=== PATIENT | female | born 1990 | race Caucasian/White ===

== ENCOUNTER 2016-05-18 15:28 | Emergency (ER) | payer OTHER ==
--- NOTE | 2016-05-18 17:20 | ED NURSING NOTES ---
Clinical Report - Nurses [facility] [address] [place] [address] 05/18/2016 15:29 [id number] Triage time 15:43 May 18 2016. Acuity: LEVEL 3. Chief Complaint: FAINTING ("like the room was upside down", "like I was going to faint" "I was breathing fast"). Alert. No acute distress. DIANNA COMA SCORE: [place] Coma Scale: 15- eyes open spontaneously (4); best verbal response- oriented x 4 (5); best motor response- obeys commands (6). --15:55 Shyann Mayo R.N. 15:43 05/18/16. BP: 118/66. HR: 83. RR: 18. O2 saturation: 100%. Temp: 98.3 F. Pain level now 0/10. --15:55 Shyann Mayo R.N. Weight: 121.1 kg stated. Height/Length: 69 inches Per Patient. BMI: 39.5. --15:42 Shyann Mayo R.N. Medications Metoprolol Tartrate Oral 25 mg. --15:47 Shyann Mayo R.N. Xanax Oral, as needed (used to take this, no longer). --15:49 Shyann Mayo R.N. Medication/allergy information source: the patient. --15:55 Shyann Mayo R.N. Allergies Penicillins. --15:53 Shyann Mayo R.N. History Arrived by private vehicle. Historian: patient. Primary physician (PCP - Cameron). 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 Pt takes Metoprolol.). This started just prior to arrival. Treatment FLITCH HANGER: None. PAST MEDICAL HX: Last normal menstrual period- May 03. No contraception. Denies current . SURGERY HX: No history of previous surgery. SOCIAL HX: Smoker- current status unknown. Alcohol use. No drug use. No infectious disease exposure. FALL RISK ASSESSMENT: Fall risk assessment completed. No fall risk identified. NUTRITIONAL RISK ASSESSMENT: The nutritional risk assessment revealed no deficiencies. FUNCTIONAL ASSESSMENT: Functional assessment: no impairments noted. LEARNING NEEDS ASSESSMENT: The learning needs assessment revealed no barriers. SKIN INTEGRITY ASSESSMENT: Skin integrity risk assessment completed. No skin integrity risk identified. --15:55 Shyann Mayo R.N. PROBLEMS: Migraines. --15:53 Shyann Mayo R.N. Interventions ID band on patient. To room. --15:55 Shyann Mayo R.N. PHYSICAL ASSESSMENT Ambulatory to room. GENERAL / NEURO / PSYCH: Oriented X 4. Appears in no acute distress. HEENT: Pupils equal, round and reactive to light. No facial asymmetry noted. RESPIRATORY: Respirations not labored. CVS: Capillary refill less than 2 seconds. SKIN: Skin is warm and dry. --17:41 Shyann Mayo R.N. NURSING PROGRESS NOTES Blood samples drawn by lab per protocol ; labeled in presence of the patient. --15:55 Shyann Mayo R.N. :patient confirmed. Clean catch urine collected with return of yellow-colored clear urine; sample sent to lab for urinalysis and HCG. --16:10 Shyann Mayo R.N. EKG time: (16:29). EKG was performed by a tech and shown to the ED physician. --17:31 [facility]. DISPOSITION / DISCHARGE Cardiac rhythm: normal sinus rhythm. No learning barriers present. Discharge instructions provided and reviewed with the patient. Patient verbalized understanding. Written instructions provided in [place]. No medication instructions. The patient was discharged by the physician. She was discharged home. She left the Emergency Department ambulatory and via private vehicle. Patient driving. --17:42 Shyann Mayo R.N. 17:41 05/18/16. BP: 108/73. HR: 82. RR: 18. O2 saturation: 99%. Pain level now 0/10. --17:42 Shyann Mayo R.N. Departure time: 17:42 May 18 2016. --17:42 Shyann Mayo R.N. Locked/Released at 05/18/2016 17:42 by Shyann Mayo R.N.
--- NOTE | 2016-05-18 17:20 | ED NURSING NOTES ---
Clinical Report - Nurses [facility] [address] [place] [address] 05/18/2016 15:29 [id number] TRI[facility] Triage time 15:43 May 18 2016. Acuity: LEVEL 3. Chief Complaint: FAINTING ("like the room was upside down", "like I was going to faint" "I was breathing fast"). Alert. No acute distress. DIANNA COMA SCORE: [place] Coma Scale: 15- eyes open spontaneously (4); best verbal response- oriented x 4 (5); best motor response- obeys commands (6). --15:55 Shyann Mayo R.N. 15:43 05/18/16. BP: 118/66. HR: 83. RR: 18. O2 saturation: 100%. Temp: 98.3 F. Pain level now 0/10. --15:55 Shyann Mayo R.N. Weight: 121.1 kg stated. Height/Length: 69 inches Per Patient. BMI: 39.5. --15:42 Shyann Mayo R.N. Medications Metoprolol Tartrate Oral 25 mg. --15:47 Shyann Mayo R.N. Xanax Oral, as needed (used to take this, no longer). --15:49 Shyann Mayo R.N. Medication/allergy information source: the patient. --15:55 Shyann Mayo R.N. Allergies Penicillins. --15:53 Shyann Mayo R.N. History Arrived by private vehicle. Historian: patient. Primary physician (PCP - Cameron). 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 Pt takes Metoprolol.). This started just prior to arrival. Treatment VOCATIONAL DIRECTOR: None. PAST MEDICAL HX: Last normal menstrual period- May 03. No contraception. Denies current . SURGERY HX: No history of previous surgery. SOCIAL HX: Smoker- current status unknown. Alcohol use. No drug use. No infectious disease exposure. FALL RISK ASSESSMENT: Fall risk assessment completed. No fall risk identified. NUTRITIONAL RISK ASSESSMENT: The nutritional risk assessment revealed no deficiencies. FUNCTIONAL ASSESSMENT: Functional assessment: no impairments noted. LEARNING NEEDS ASSESSMENT: The learning needs assessment revealed no barriers. SKIN INTEGRITY ASSESSMENT: Skin integrity risk assessment completed. No skin integrity risk identified. --15:55 Shyann Mayo R.N. PROBLEMS: Migraines. --15:53 Shyann Mayo R.N. Interventions ID band on patient. To room. --15:55 Shyann Mayo R.N. PHYSICAL ASSESSMENT Ambulatory to room. GENERAL / NEURO / PSYCH: Oriented X 4. Appears in no acute distress. HEENT: Pupils equal, round and reactive to light. No facial asymmetry noted. RESPIRATORY: Respirations not labored. CVS: Capillary refill less than 2 seconds. SKIN: Skin is warm and dry. --17:41 Shyann Mayo R.N. NURSING PROGRESS NOTES Blood samples drawn by lab per protocol ; labeled in presence of the patient. --15:55 Shyann Mayo R.N. :patient confirmed. Clean catch urine collected with return of yellow-colored clear urine; sample sent to lab for urinalysis and HCG. --16:10 Shyann Mayo R.N. EKG time: (16:29). EKG was performed by a tech and shown to the ED physician. --17:31 [facility]. DISPOSITION / DISCHARGE Cardiac rhythm: normal sinus rhythm. No learning barriers present. Discharge instructions provided and reviewed with the patient. Patient verbalized understanding. Written instructions provided in [place]. No medication instructions. The patient was discharged by the physician. She was discharged home. She left the Emergency Department ambulatory and via private vehicle. Patient driving. --17:42 Shyann Mayo R.N. 17:41 05/18/16. BP: 108/73. HR: 82. RR: 18. O2 saturation: 99%. Pain level now 0/10. --17:42 Shyann Mayo R.N. Departure time: 17:42 May 18 2016. --17:42 Shyann Mayo R.N. Locked/Released at 05/18/2016 17:42 by Shyann Mayo R.N.
--- NOTE | 2016-05-18 17:20 | ED CLINICAL REPORT ---
Clinical Report - Physicians/Mid Levels [facility] [address] [place] [address] 05/18/2016 15:29 Patient: ABNER JOHNS Arrived- By private vehicle. Historian- patient. HISTORY OF PRESENT ILLNESS Is no longer unconscious. She has recovered. Chief Complaint: NEAR-SYNCOPE. This occurred today. It was abrupt in onset. Patient was last known well (just prior to arrival). Event was witnessed. The patient felt faint. The patient had preceding symptoms of light-headedness. At time of event, she was standing. This did not occur when the patient was recumbent, after she had just stood up or during exertion. The episode was brief and lasted minutes. Currently she has no symptoms. No injuries noted. Currently she feels normal. No weakness currently. No nausea currently. No headache currently. (reports that she works at a [employer]. States that this has happened in the past before. Reports that she is Following up with a specialist. Has not been able to schedule an appointment at.). Similar symptoms previously: Several times. Recent medical care: Not recently seen/assessed. REVIEW OF SYSTEMS No chest pain, abdominal pain or fever. All systems otherwise negative, except as recorded above. PAST HISTORY See nurses notes. SOCIAL HISTORY Never smoker. No alcohol use or drug use. Is a local resident. FAMILY HISTORY Negative. (no family history of early/sudden ). ADDITIONAL NOTES The nursing notes have been reviewed. PHYSICAL EXAM Vital Signs: 05/18/2016 15:43 BP: 118/66. HR: 83. RR: 18. O2 saturation: 100%. Temp: 98.3 F. Blood pressure normal. Oxygen saturation normal. Appearance: Alert. No acute distress. Eyes: Pupils equal, round and reactive to light. No nystagmus. Extraocular movements normal. ENT: Normal ENT inspection. TM's normal. Moist mucous membranes. Pharynx normal. Neck: Normal inspection. Neck supple. CVS: Normal heart rate and rhythm. Heart sounds normal. Pulses normal. Respiratory: No respiratory distress. Breath sounds normal. Abdomen: Soft and nontender. No organomegaly. Skin: Skin warm and dry. Normal skin color. No rash. Normal skin turgor. Extremities: Extremities exhibit normal ROM. No lower extremity edema. Neuro: Alert. Oriented X 3. Mood/affect normal. Speech normal. Cranial nerves normal (as tested). No cerebellar findings. No motor deficit. No sensory deficit. Reflexes normal. (negative Sincere-Hallpike. HINTS examination negative). LABS, X-RAYS, AND EKG EKG: EKG time: (1629). No acute process. No acute ischemia. Normal EKG. Normal sinus rhythm. Normal P waves. Normal ALVARO. Normal QRS complex. Normal axis. Normal ST and T waves, QT and QTc. The study has been interpreted contemporaneously by me. The study has been independently viewed by me. The EKG appears to be a good tracing. Interpretation time: 1632. Laboratory Tests: Urine: ([place]: 05/18/2016 16:00) ( [facility] 05/18/2016 16:19) Final results Test Result Flag Units (Reference) URINE NEGATIVE CBC w Diff: ([place]: 05/18/2016 15:55) ( [facility] 05/18/2016 16:12) Final results Test Result Flag Units (Reference) WHITE BLOOD COUNT 11.5 K/uL (4.5-11.5) RED BLOOD COUNT 5.02 M/uL (4.00-5.20) HEMOGLOBIN 15.7 gm/dL (12.0-16.0) HEMATOCRIT 46.3 H % (36.0-46.0) MEAN CELL VOLUME 92 fL (80-100) MEAN CORPUSCULAR HGB 31 pg (26-34) MEAN CORPUSCULAR HGB CONC 34 g/dL (31-37) RED CELL DISTRIBUTION WIDTH 12.4 % (11.6-14.8) PLATELET COUNT 226 K/uL (150-400) NEUTROPHIL % 71.6 % (50-75) LYMPH % 23.0 L % (25-40) MONO % 4.7 % (3-14) EOSINOPHIL % 0.6 % (0-4) BASOPHIL % 0.1 % (0-2) CMP: ([place]: 05/18/2016 15:55) ( MsgRcvd 05/18/2016 16:49) Final results Test Result Flag Units (Reference) GLUCOSE 108 mg/dL (70-110) BUN 15 mg/dL (7-18) CREATININE 0.8 mg/dL (0.6-1.3) Estimated GFR >60 mL/min Estimated GFR- >60 mL/min Note: Persistent reduction over 3 months in eGFR<60 mL/min/1.73 m2 defines CKD. Patients with eGFR values>=60 mL/min/1.73 m2 may also have CKD if evidence ofpersistent proteinuria. Additional information may be foundat www.kidney.org. SODIUM 139 mmol/L (136-145) POTASSIUM 3.8 mmol/L (3.5-5.1) CHLORIDE 102 mmol/L (98-107) CARBON DIOXIDE 29 mmol/L (21-32) CALCIUM 8.8 mg/dL (8.5-10.1) TOTAL PROTEIN 7.6 g/dL (6.4-8.2) ALBUMIN 4.1 g/dL (3.3-5.0) BILIRUBIN, TOTAL 0.3 mg/dL (0.0-1.0) ALKALINE PHOSPHATASE 60 U/L (46-116) AST (SGOT) 18 U/L (15-37) ALT (SGPT) 32 U/L (12-78) . PROGRESS AND PROCEDURES Course of Care: the patient is a pleasant 25-year-old female with past medical history significant for past near syncopal events presenting for evaluation of near syncope. The patient does not have any current symptoms at this time. Patient's exam is otherwise reassuring. Patient will be evaluated with the [place] syncope Rule. Patient is agreeable to treatment plan. Patient appears nontoxic and in no acute distress. Do not feel this is seizure related or stroke related. Patient's workup is noted to be unremarkable. EKG does not show any acute abnormalities. Rest of the patient's laboratory studies are otherwise unremarkable. Patient continues to be nontoxic and in no acute distress. Repeat examination also is reassuring. I discussion with patient in regards to her workup, diagnosis, home care, follow-up, and return precautions. All questions answered. The patient expressed understanding of these instructions and was agreeable to them. Do not feel the patient is admitted to the hospital require further emergency department evaluation. Disposition: Discharged. Condition: good. CLINICAL IMPRESSION Near syncope (acute). 05/18/2016 16:32 BP: 108/54. HR: 90. RR: 18. O2 saturation: 100%. Blood pressure normal. Oxygen saturation normal. INSTRUCTIONS Warnings: GENERAL WARNINGS: Return or contact your physician immediately if your condition worsens or changes unexpectedly, if not improving as expected, or if other problems arise. SPECIFICALLY, return if you develop chest pain, fluttering sensation in your chest, lightheadedness, fainting, numbness, weakness or extreme fatigue. Your Current Medications: CONTINUE TAKING THE FOLLOWING MEDICATIONS: Metoprolol Tartrate Oral : 25 mg. Xanax Oral : prn, used to take this, no longer. Follow-up: Return to the emergency department as needed. Follow up with a specialist Your neurologist as scheduled. Follow up with your doctor in three as scheduled. Reason for referral: recheck today's concerns. Screening today revealed the patient's blood pressure to be in the normal range. The patient should follow up with a primary care provider for blood pressure management. Understanding of the discharge instructions verbalized by patient. (Electronically signed by Brice Gage Dr. 05/24/2016 5:33)
--- NOTE | 2016-05-18 17:20 | ED ORDER SUMMARY ---
..... Patient: ABNER JOHNS OrderSheet [facility] VisitID: [id number] [address] [place] [address] 25y, F Registration Date/Time: 05/18/2016 ORDER SHEET Weight: 121.1 kg (stated) Allergies: Penicillins GENERAL ORDERS: Rectangular Tank Cooper (Continuous) (near syncope) (15:49 05/18/2016 Charles Sun) (16:33 Serena) CBC w Diff Urgent (15:50 05/18/2016 Charles Sun) (Ack 15:58 Hali) (16:02 Chani CoonN.) CMP Urgent (15:50 05/18/2016 Charles Sun) (Ack 15:58 Hali) (16:02 Chani CoonN.) Urine Urgent (15:50 05/18/2016 Charles Sun) (Ack 15:58 Hali) (16:37 Chani CoonN.) EKG - ER Stat (15:50 05/18/2016 Charles Sun) (Ack 15:58 Hali) (16:[facility] Pulse oximeter (15:50 05/18/2016 Charles Sun) (16:33 Serena) Vitals - Orthostatic (15:50 05/18/2016 Charles Sun) (16:37 Chani R.N.) MEDICATION ORDERS: IV FLUIDS: ORDER SHEET NOTES: [Electronically signed by Shyann Mayo R.N. (17:42 05/18/2016)] [Electronically signed by Brice Gage Dr. (05:33 05/24/2016)] [Electronically locked/signed by Shyann Mayo R.N. (17:42 05/18/2016)]
--- NOTE | 2016-05-18 17:20 | ED ORDER SUMMARY ---
..... Patient: ABNER JOHNS OrderSheet [facility] VisitID: [id number] [address] [place] [address] 25y, F Registration Date/Time: 05/18/2016 ORDER SHEET Weight: 121.1 kg (stated) Allergies: Penicillins GENERAL ORDERS: Straddle Bug (Continuous) (near syncope) (15:49 05/18/2016 Charles Sun) (16:33 Serena) CBC w Diff Urgent (15:50 05/18/2016 Charles Sun) (Ack 15:58 Hali) (16:02 Chani CoonN.) CMP Urgent (15:50 05/18/2016 Charles Sun) (Ack 15:58 Hali) (16:02 Chani CoonN.) Urine Urgent (15:50 05/18/2016 Charles Sun) (Ack 15:58 Hali) (16:37 Chani CoonN.) EKG - ER Stat (15:50 05/18/2016 Charles Sun) (Ack 15:58 Hali) (16:33 [facility] Pulse oximeter (15:50 05/18/2016 Charles Sun) (16:33 Serena) Vitals - Orthostatic (15:50 05/18/2016 Charles Sun) (16:37 Chani R.N.) MEDICATION ORDERS: IV FLUIDS: ORDER SHEET NOTES: [Electronically signed by Shyann Mayo R.N. (17:42 05/18/2016)] [Electronically signed by Brice Gage Dr. (05:33 05/24/2016)] [Electronically locked/signed by Shyann Mayo R.N. (17:42 05/18/2016)]
--- NOTE | 2016-05-24 05:33 | ED MAR SUMMARY ---
..... Medication Administration Record [facility] [address], [place] [id number] Patient: ABNER JOHNS Visit ID: [id number] 25y, F Weight: 121.1 kg Height/Length: 69 in BMI: 39.5 ALLERGIES: Penicillins
--- NOTE | 2016-05-24 05:33 | ED DISCHARGE INSTRUCTIONS ---
Patient: ABNER JOHNS General Instructions [facility] VisitID: [id number] [place] [address] 25y, F Registration Date/Time: 05/18/2016 Near syncope (acute). 05/18/2016 16:32 BP: 108/54. HR: 90. RR: 18. O2 saturation: 100%. Blood pressure normal. Oxygen saturation normal. INSTRUCTIONS Warnings: GENERAL WARNINGS: Return or contact your physician immediately if your condition worsens or changes unexpectedly, if not improving as expected, or if other problems arise. SPECIFICALLY, return if you develop chest pain, fluttering sensation in your chest, lightheadedness, fainting, numbness, weakness or extreme fatigue. Your Current Medications: CONTINUE TAKING THE FOLLOWING MEDICATIONS: Metoprolol Tartrate Oral : 25 mg. Xanax Oral : prn, used to take this, no longer. Follow-up: Return to the emergency department as needed. Follow up with a specialist Your neurologist as scheduled. Follow up with your doctor in three as scheduled. Reason for referral: recheck today's concerns. Screening today revealed the patient's blood pressure to be in the normal range. The patient should follow up with a primary care provider for blood pressure management. Understanding of the discharge instructions verbalized by patient. ADDITIONAL INFORMATION Near-Fainting:Uncertain Cause Fainting (syncope) is a temporary loss of consciousness ("passing out"). It occurs when blood flow to the brain is reduced. Near-fainting ("near-syncope") is like fainting, but you do not fully "pass out." The common minor causes of near fainting include sudden fear, pain, emotional stress, overexertion, or quickly standing up after sitting or lying for a long time. The more serious causes for near fainting are due to either a very slow or very fast heart beat, dehydration, anemia, blood loss, problems related to the heart, or taking too much high blood pressure medicine. The exact cause of your episode is not certain. More tests may be required. Therefore, it is important that you follow up with your doctor as advised. Home Care: 1) Rest today. Resume your normal activities as soon as you are feeling back to normal. 2) If you become light-headed or dizzy, lie down right away or sit with your head between your knees. 3) Because we do not know the exact cause of your near fainting spell, another spell could occur without warning. Therefore, do not drive a car or use dangerous equipment. D o not take a bath alone (use a shower instead). Do not swim alone. You can resume these activities when your doctor says that you are no longer in danger of having a near fainting spell. 4) Stay well hydrated by drinking enough fluid each day. Follow Up with your doctor as instructed. Get Prompt Medical Attention if any of the following occur: -- Another fainting spell occurs, and it is not explained by the common causes listed above -- Chest, arm, neck, jaw, back or abdominal pain -- Shortness of breath -- Weakness, tingling or numbness in one side of the face, one arm or leg -- Slurred speech, confusion, trouble walking or seeing -- Seizure -- Blood in vomit, stools (black or red color) -- (In women) unexpected vaginal bleeding You have been given the following additional information: Near Syncope, Unknown (Electronically signed by Brice Gage Dr. 05/24/2016 5:33)
--- NOTE | 2016-05-24 05:33 | ED MED RECONCILIATION SUMMARY ---
Patient: ABNER JOHNS Medication Reconciliation Report [facility] VisitID: [id number] [address] [place] [address] 25y, F Registration Date/Time: 05/18/2016 Weight: 121.1 kg Height/Length: 69 in. BMI: 39.5 ALLERGIES: Penicillins The patient's Home Medications are listed below: CONTINUE TAKING THE FOLLOWING MEDICATIONS: Metoprolol Tartrate Oral 25 mg Xanax Oral, used to take this, no longer The source(s) of the original Home Medication information: patient The following Medications were given to the patient in the Emergency Department: None. The following Medications were prescribed to the patient: None.
--- NOTE | 2016-05-24 05:33 | ED MED RECONCILIATION SUMMARY ---
Patient: ABNER JOHNS Medication Reconciliation Report [facility] VisitID: [id number] [address] [place] [address] 25y, F Registration Date/Time: 05/18/2016 Weight: 121.1 kg Height/Length: 69 in. BMI: 39.5 ALLERGIES: Penicillins The patient's Home Medications are listed below: CONTINUE TAKING THE FOLLOWING MEDICATIONS: Metoprolol Tartrate Oral 25 mg Xanax Oral, used to take this, no longer The source(s) of the original Home Medication information: patient The following Medications were given to the patient in the Emergency Department: None. The following Medications were prescribed to the patient: None.
--- NOTE | 2016-05-24 05:33 | ED MAR SUMMARY ---
..... Medication Administration Record [facility] [address] [place], [place] [id number] Patient: ABNER JOHNS Visit ID: [id number] 25y, F Weight: 121.1 kg Height/Length: 69 in BMI: 39.5 ALLERGIES: Penicillins
== END 2016-05-18 17:35 | disposition home or self-care (01) ==
LOC: ED SRH 15:28
DX: R55 Syncope and collapse (principal); Z88.0 Allergy status to penicillin
CPT/HCPCS: 90074; 90100; 93070; 95059